=== PATIENT | male | born 1975 | race Two or more races ===

== ENCOUNTER 2023-02-07 15:20 | Inpatient (IN) | payer OTHER ==
[~2023-02-07] VITALS: Ht 182.9 cm; Wt 120.0 kg
[2023-02-07] MEDS ORDERED: MORPHINE SULFATE 4 MG/ML SYR/VIAL IV ONE ×2 (16:30→18:00)
[2023-02-07] MEDS ORDERED: SODIUM CHLORIDE 0.9% 1,000 ML IV ONE (16:30)
[2023-02-07 17:08] LABS: Basophils # (auto) 0.1 10 ^3/uL (0-0.2); Basophils % (auto) 0.7 % (0.0-2.0); Eosinophils # (auto) 0.1 10 ^3/uL (0-0.8); Eosinophils % (auto) 1.7 % (0.0-7.0); Hematocrit 43.6 % (41.0-53.0); Hemoglobin 14.9 g/dL (13.5-17.5); Lymphocytes # (auto) 4.3 10 ^3/uL (0.4-5.4); Lymphocytes % (auto) 52.6 % (10.0-50.0); Mean Corpuscular Hemoglobin 30.9 pg (28.0-32.0); Mean Corpuscular Hgb Conc. 34.1 g/dL (32.0-36.0); Mean Corpuscular Volume 90.6 fL (80.0-100.0); Monocytes # (auto) 0.6 10 ^3/uL (0-1.3); Monocytes % (auto) 7.5 % (0.0-12.0); Neutrophils # (auto) 3.1 10 ^3/uL (1.6-8.6); Neutrophils % (auto) 37.5 % (37.0-80.0); Nucleated Red Blood Cells % 0.2 %; Red Blood Cells 4.81 10^6/uL (4.5-5.90); Red Cell Distribution Width 13.5 % (11.8-14.3); White Blood Cell 8.3 10^3/uL (4.4-10.8)
[2023-02-07 17:31] LABS: Albumin 3.8 g/dL (3.4-5.0); Calcium 8.7 mg/dL (8.5-10.1)
[2023-02-07 17:34] LABS: BUN/Creatinine Ratio 20.2 (10.0-20.0); Bilirubin, Total 0.9 mg/dL (0.2-1.0)
[2023-02-07] MEDS ORDERED: ENOXAPARIN SOD 40 MG/0.4 ML SYRINGE SC ONE (18:00)
[2023-02-08] VITALS (7 sets, daily range): BP systolic 139–179; BP diastolic 76–99; PULSE 50–70; RESP 16–18; TEMP 97.4–98; O2SAT 92–96
[2023-02-08] MEDS ORDERED: IBU600T PO (04:27)
[2023-02-08] MEDS: MORPHINE SULFATE 4 MG/ML SYR/VIAL IV PRN ×4 (06:29→23:30)
[2023-02-08 07:00] LABS: Urine Bacteria NONE SEEN /hpf (None Seen); Urine Blood Negative /uL (Negative); Urine Mucus FEW (None Seen); Urine Specific Gravity 1.017 (1.001-1.035); Urine WBC <1 /hpf (0 - 3)
[2023-02-08 11:50] LABS: Hepatitis B Surface Antibody Positive (Negative)
[2023-02-09 05:21] VITALS: BP 128/69; PULSE 58; RESP 18; TEMP 97.5; O2SAT 98
[2023-02-09] MEDS: MORPHINE SULFATE 4 MG/ML SYR/VIAL IV PRN (06:52)
[2023-02-09 06:55] LABS: INR 1.18 (0.9-1.15); Partial Thromboplastin Time 30.5 SEC (24.5-34.5)
[2023-02-09 08:00] VITALS: BP 157/97; PULSE 61; RESP 16; TEMP 97.2
[2023-02-09 09:00] VITALS: BP 157/97; PULSE 61; RESP 16; TEMP 97.2; O2SAT 16
[2023-02-09] MEDS ORDERED: LISINOPRIL 10 MG TAB PO SCH (10:00)
[2023-02-09 10:48] VITALS: BP 153/85; PULSE 61; RESP 16; TEMP 36.2; O2SAT 97
== END 2023-02-09 11:50 | DRG 394 ==
LOC: EEVIPCON 15:20 → ER 15:20 → OVERFLOW 17:20 → WEST WING 21:20
PROVIDERS: ADMIT Internal Medicine; ATTEND Internal Medicine
DX: K40.00 Bilateral inguinal hernia, with obstruction, without gangrene, not specified as recurrent (principal); K76.6 Portal hypertension; I10 Essential (primary) hypertension; K57.30 Diverticulosis of large intestine without perforation or abscess without bleeding; K74.60 Unspecified cirrhosis of liver; K80.20 Calculus of gallbladder without cholecystitis without obstruction; R16.1 Splenomegaly, not elsewhere classified; I83.90 Asymptomatic varicose veins of unspecified lower extremity; Z86.19 Personal history of other infectious and parasitic diseases
CPT/HCPCS: 36415; 74176; 80053; 81001; 85025; 85610; 85730; 86706; 86803; 87081; 87340; G0378

== ENCOUNTER 2023-05-03 16:07 | Inpatient (IN) | payer OTHER ==
[~2023-05-03] VITALS: Ht 182.9 cm; Wt 124.4 kg
[2023-05-03] MEDS ORDERED: MORPHINE SULFATE INJ 2 MG/ml SYRG IM ONE (17:15)
[2023-05-03] MEDS ORDERED: ONDANSETRON ODT 4 MG TAB PO ONE (17:15)
[2023-05-03 17:51] LABS: Basophils # (auto) 0 10 ^3/uL (0-0.2); Basophils % (auto) 0.3 % (0.0-2.0); Eosinophils # (auto) 0.1 10 ^3/uL (0-0.8); Eosinophils % (auto) 1.6 % (0.0-7.0); Hematocrit 48.4 % (41.0-53.0); Hemoglobin 16.7 g/dL (13.5-17.5); Lymphocytes # (auto) 3.5 10 ^3/uL (0.4-5.4); Lymphocytes % (auto) 37.2 % (10.0-50.0); Mean Corpuscular Hemoglobin 30.6 pg (28.0-32.0); Mean Corpuscular Hgb Conc. 34.5 g/dL (32.0-36.0); Mean Corpuscular Volume 88.5 fL (80.0-100.0); Monocytes # (auto) 0.6 10 ^3/uL (0-1.3); Monocytes % (auto) 6.5 % (0.0-12.0); Neutrophils # (auto) 5.1 10 ^3/uL (1.6-8.6); Neutrophils % (auto) 54.4 % (37.0-80.0); Nucleated Red Blood Cells % 0.9 %; Red Blood Cells 5.47 10^6/uL (4.5-5.90); Red Cell Distribution Width 14.3 % (11.8-14.3); White Blood Cell 9.4 10^3/uL (4.4-10.8)
[2023-05-03 18:10] LABS: Alanine Aminotransferase 50 U/L (7-40); Albumin 4.8 g/dL (3.2-4.8); Alkaline Phosphatase 108 U/L (46-116); Anion Gap 6 (5-15); Aspartate Aminotransferase 46 U/L (13-40); BUN/Creatinine Ratio 9.5 (10.0-20.0); Bilirubin, Total 1.4 mg/dL (0.2-1.0); Blood Urea Nitrogen 9 mg/dL (9-23); Calcium 9.8 mg/dL (8.7-10.4); Carbon Dioxide 28 mmol/L (20-30); Chloride 103 mmol/L (98-107); Glucose 91 mg/dL (74-106); Lipase 53 U/L (12-53); Potassium 3.9 mmol/L (3.5-5.1); Sodium 137 mmol/L (136-145); Total Protein 8.9 g/dL (5.7-8.2)
[2023-05-03 18:21] LABS: INR 1.16 (0.9-1.15); Prothrombin Time 12.1 sec (9.3-11.8)
[2023-05-03] MEDS ORDERED: ONDANSETRON HCL 4 MG/2 ML VIAL IV PRN (20:45)
[2023-05-03] MEDS ORDERED: MORPHINE SULFATE INJ 2 MG/ml SYRG IV PRN (20:45)
[2023-05-03] MEDS ORDERED: NITROGLYCERIN 0.4 MG SL TAB SL PRN (20:45)
[2023-05-03] MEDS ORDERED: MORPHINE SULFATE INJ 2 MG/ml SYRG IV ONE (22:00)
[2023-05-03] MEDS ORDERED: ONDANSETRON HCL 4 MG/2 ML VIAL IV ONE (22:00)
[2023-05-03] MEDS ORDERED: cloNIDine HCL 0.1 MG TAB PO ONE (22:00)
[2023-05-03] MEDS ORDERED: cloNIDine HCL 0.1 MG TAB PO PRN (22:15)
[2023-05-03] MEDS ORDERED: amLODIPine BESYLATE 5 MG TAB PO ONE (22:15)
[2023-05-03 23:09] LABS: Urine Bacteria MOD /hpf (None Seen); Urine Blood Negative /uL (Negative); Urine Clarity HAZY (Clear); Urine Color Yellow (Yellow); Urine Mucus MODERATE (None Seen); Urine Protein, UAD TRACE (Negative); Urine Specific Gravity 1.024 (1.001-1.035); Urine Urobilinogen Normal (Negative); Urine WBC 32 /hpf (0 - 3); Urine pH 5.5 (5.0-8.0)
[2023-05-03 23:18] LABS: Amphetamine Screen, Urine Neg (NEGATIVE); Barbiturate Scree,Urine Neg (NEGATIVE); Benzodiazephine Screen, Urine Neg (NEGATIVE); Cocaine Screen, Urine Neg (NEGATIVE); Opiate Scree,Urine Neg (NEGATIVE); Phencyclidine Screen, Urine Neg (NEGATIVE)
[2023-05-03 23:19] LABS: Cannabinoid Screen, Urine Neg (NEGATIVE)
[2023-05-03] MEDS: HYDROcodone-ACET 10/325MG TAB PO PRN (23:29)
[2023-05-04] MEDS: HYDROcodone-ACET 10/325MG TAB PO PRN ×4 (04:28→19:07)
[2023-05-04 07:40] VITALS: PULSE 54; RESP 14; O2SAT 94
[2023-05-04] MEDS ORDERED: amLODIPine BESYLATE 5 MG TAB PO SCH (10:00)
[2023-05-04] MEDS: ENOXAPARIN SOD 40 MG/0.4 ML SYRINGE SC SCH (10:11)
[2023-05-04 17:39] VITALS: BP 171/90; PULSE 66; RESP 18; TEMP 97.8; O2SAT 94
[2023-05-04] MEDS: amLODIPine BESYLATE 5 MG TAB PO SCH (19:04)
[2023-05-04 20:00] VITALS: BP 134/76; PULSE 61; RESP 18; TEMP 97.9; O2SAT 94
[2023-05-04 22:00] VITALS: BP 134/76; PULSE 61; RESP 18; O2SAT 94
[2023-05-05 04:43] VITALS: BP 120/70; PULSE 54; RESP 19; TEMP 97.6; O2SAT 96
[2023-05-05 05:35] LABS: INR 1.15 (0.9-1.15); Partial Thromboplastin Time 28.5 SEC (24.5-34.5)
[2023-05-05] MEDS ORDERED: HYDROcodone-ACET 5/325MG TAB PO PRN (07:00)
[2023-05-05 08:00] VITALS: BP 105/81; PULSE 65; RESP 16; TEMP 97.9; O2SAT 96
[2023-05-05 09:00] VITALS: BP 105/81; PULSE 65; RESP 16; TEMP 97.7; O2SAT 97
[2023-05-05] MEDS: amLODIPine BESYLATE 5 MG TAB PO SCH (09:23)
[2023-05-05] MEDS: HYDROcodone-ACET 10/325MG TAB PO PRN ×2 (09:23→21:17)
[2023-05-05] MEDS: PANTOPRAZOLE 40 MG TAB PO SCH (09:24)
[2023-05-05] MEDS: ENOXAPARIN SOD 40 MG/0.4 ML SYRINGE SC SCH (09:24)
[2023-05-05 12:57] VITALS: BP 124/80; PULSE 65; RESP 14; TEMP 97.7; O2SAT 97
[2023-05-05 17:00] VITALS: BP 134/84; PULSE 62; RESP 16; TEMP 98.3; O2SAT 98
[2023-05-05 20:00] VITALS: BP 159/70; PULSE 66; RESP 20; TEMP 98.5; O2SAT 95
[2023-05-05] MEDS: DOCUSATE SOD 100 MG CAP PO SCH (21:28)
[2023-05-06 05:00] VITALS: BP 140/87; PULSE 57; RESP 20; TEMP 97.6; O2SAT 95
[2023-05-06] MEDS: HYDROcodone-ACET 10/325MG TAB PO PRN ×4 (06:18→23:47)
[2023-05-06 08:00] VITALS: BP 138/86; PULSE 63; RESP 16; RESP 18; TEMP 97.9; O2SAT 96
[2023-05-06 09:00] VITALS: BP 138/86; PULSE 55; RESP 18; TEMP 97.9; O2SAT 96
[2023-05-06] MEDS: DOCUSATE SOD 100 MG CAP PO SCH ×2 (09:47→22:00)
[2023-05-06] MEDS: ENOXAPARIN SOD 40 MG/0.4 ML SYRINGE SC SCH (09:47)
[2023-05-06] MEDS: amLODIPine BESYLATE 5 MG TAB PO SCH (09:48)
[2023-05-06] MEDS: PANTOPRAZOLE 40 MG TAB PO SCH (09:48)
[2023-05-06 13:00] VITALS: BP 127/77; PULSE 60; RESP 18; TEMP 97.8; O2SAT 97
[2023-05-06 20:00] VITALS: BP 153/89; PULSE 67; RESP 18; TEMP 97.8; O2SAT 95
[2023-05-06 21:43] LABS: Basophils # (auto) 0.1 10 ^3/uL (0-0.2); Basophils % (auto) 0.8 % (0.0-2.0); Eosinophils # (auto) 0.2 10 ^3/uL (0-0.8); Eosinophils % (auto) 2.8 % (0.0-7.0); Hematocrit 45.1 % (41.0-53.0); Hemoglobin 15.5 g/dL (13.5-17.5); Lymphocytes # (auto) 3.1 10 ^3/uL (0.4-5.4); Lymphocytes % (auto) 46.5 % (10.0-50.0); Mean Corpuscular Hemoglobin 30.5 pg (28.0-32.0); Mean Corpuscular Hgb Conc. 34.4 g/dL (32.0-36.0); Mean Corpuscular Volume 88.6 fL (80.0-100.0); Monocytes # (auto) 0.6 10 ^3/uL (0-1.3); Monocytes % (auto) 8.4 % (0.0-12.0); Neutrophils # (auto) 2.8 10 ^3/uL (1.6-8.6); Neutrophils % (auto) 41.5 % (37.0-80.0); Nucleated Red Blood Cells % 0.3 %; Red Blood Cells 5.09 10^6/uL (4.5-5.90); Red Cell Distribution Width 13.9 % (11.8-14.3); White Blood Cell 6.8 10^3/uL (4.4-10.8)
[2023-05-06 22:00] VITALS: BP 153/89; PULSE 67; RESP 18; TEMP 97.8; O2SAT 95
[2023-05-06 22:01] LABS: Alanine Aminotransferase 40 U/L (7-40); Albumin 3.9 g/dL (3.2-4.8); Alkaline Phosphatase 99 U/L (46-116); Anion Gap 5 (5-15); Aspartate Aminotransferase 28 U/L (13-40); BUN/Creatinine Ratio 11.1 (10.0-20.0); Bilirubin, Total 0.7 mg/dL (0.2-1.0); Blood Urea Nitrogen 10 mg/dL (9-23); Calcium 8.9 mg/dL (8.7-10.4); Carbon Dioxide 29 mmol/L (20-30); Chloride 103 mmol/L (98-107); Glucose 92 mg/dL (74-106); Potassium 3.8 mmol/L (3.5-5.1); Sodium 137 mmol/L (136-145); Total Protein 7.4 g/dL (5.7-8.2)
[2023-05-07] VITALS (7 sets, daily range): BP systolic 114–159; BP diastolic 46–93; PULSE 60–94; RESP 13–21; TEMP 97.6–98.6; O2SAT 93–98
[2023-05-07] MEDS ORDERED: SUCCINYLCHOLINE CHLORIDE 20 MG/ML 10ML VIAL IV ONE (07:08)
[2023-05-07] MEDS ORDERED: fentaNYL CITRATE 100 MCG/2 ML VL ONE (07:12)
[2023-05-07] MEDS ORDERED: PROPOFOL 10 MG/ML 20 ML IV ONE (07:18)
[2023-05-07] MEDS ORDERED: SUGAMMADEX 200mg/2ml Vial (100MG/ML) IV ONE (07:20)
[2023-05-07] MEDS ORDERED: LIDOCAINE 1% HCL (LOCAL ANESTH.) INJ 20ML MDV ONE (07:21)
[2023-05-07] MEDS ORDERED: BUPIVACAINE HCL 50 ML ONE (07:22)
[2023-05-07] MEDS ORDERED: ceFAZolin 1GM/50ML 100 ML IV ONE (07:23)
[2023-05-07] MEDS ORDERED: ONDANSETRON HCL 4 MG/2 ML VIAL ONE (07:53)
[2023-05-07] MEDS ORDERED: DexAMETHasone SOD PHOS 10MG/1ML VIAL INJ ONE (07:53)
[2023-05-07] MEDS ORDERED: ROCURONIUM 10MG/ML 10ML VIAL IV ONE (07:53)
[2023-05-07] MEDS ORDERED: hydrALAZINE HCL 20 MG/ML VL ONE (07:56)
[2023-05-07] MEDS ORDERED: ePHEDrine SULFATE 50 MG/ML AMP ONE (08:30)
[2023-05-07] MEDS ORDERED: MEPERIDINE HCL (50 MG/ML) 1 ML VIAL ONE (09:13)
[2023-05-07] MEDS ORDERED: MORPHINE SULFATE INJ 2 MG/ml SYRG IV PRN (09:30)
[2023-05-07] MEDS: ENOXAPARIN SOD 40 MG/0.4 ML SYRINGE SC SCH (10:00)
[2023-05-07] MEDS: HYDROmorphone HCL 2 MG/ML VL/or syr IV PRN ×3 (10:13→10:34)
[2023-05-07] MEDS ORDERED: MEPERIDINE HCL (25 MG/ML) 1ML VIAL IV PRN (10:45)
[2023-05-07] MEDS ORDERED: ONDANSETRON HCL 4 MG/2 ML VIAL IV PRN (10:45)
[2023-05-07] MEDS ORDERED: HYDROmorphone HCL 2 MG/ML VL/or syr IV PRN (10:45)
[2023-05-07] MEDS: PANTOPRAZOLE 40 MG TAB PO SCH (11:01)
[2023-05-07] MEDS: DOCUSATE SOD 100 MG CAP PO SCH ×2 (11:01→21:36)
[2023-05-07] MEDS: amLODIPine BESYLATE 5 MG TAB PO SCH (11:01)
[2023-05-07] MEDS: HYDROcodone-ACET 10/325MG TAB PO PRN ×3 (11:07→21:37)
[2023-05-08] MEDS: HYDROcodone-ACET 10/325MG TAB PO PRN ×3 (03:41→13:09)
[2023-05-08 05:00] VITALS: BP 145/87; PULSE 76; RESP 15; TEMP 98.2; O2SAT 95
[2023-05-08] MEDS: DOCUSATE SOD 100 MG CAP PO SCH (08:18)
[2023-05-08] MEDS: PANTOPRAZOLE 40 MG TAB PO SCH (08:18)
[2023-05-08] MEDS: amLODIPine BESYLATE 5 MG TAB PO SCH (08:19)
[2023-05-08] MEDS: ENOXAPARIN SOD 40 MG/0.4 ML SYRINGE SC SCH (08:19)
[2023-05-08 08:20] VITALS: BP 126/84; PULSE 86; RESP 21; TEMP 98.3; O2SAT 93
[2023-05-08 12:25] VITALS: BP 118/71; PULSE 73; RESP 21; TEMP 98.5; O2SAT 94
[2023-05-08 16:45] VITALS: BP 145/83; PULSE 79; RESP 21; TEMP 98.4; O2SAT 95
[2023-05-08] MEDS ORDERED: DOCU-265 PO (17:39)
[2023-05-08] MEDS ORDERED: AML5T PO (17:39)
== END 2023-05-08 18:10 | DRG 352 ==
LOC: EEVIPCON 16:07 → ER 16:07 → OVERFLOW 20:44 → WEST WING 05-04 15:37
PROVIDERS: ADMIT Internal Medicine; ATTEND Internal Medicine
PROC: 0YU50JZ Supplement Right Inguinal Region with Synthetic Substitute, Open Approach (ICD-10-PCS; principal; 2023-05-07 07:40)
DX: K40.00 Bilateral inguinal hernia, with obstruction, without gangrene, not specified as recurrent (principal); I10 Essential (primary) hypertension; K74.60 Unspecified cirrhosis of liver; N43.3 Hydrocele, unspecified; E66.01 Morbid (severe) obesity due to excess calories; Z83.3 Family history of diabetes mellitus; Z82.49 Family history of ischemic heart disease and other diseases of the circulatory system; Z68.37 Body mass index [BMI] 37.0-37.9, adult
CPT/HCPCS: 36415; 71045; 74176; 80053; 80307; 81001; 83690; 83880; 84484; 85025; 85610; 85730; 86850; 86900; 86901; 93005; 96374; 96375; G0378; J0330; J0690; J1100; J2001; J2405; J2704; J3490